=== PATIENT | male | born 2000 | race Two or more races ===

== ENCOUNTER 2024-02-15 18:10 | Emergency (ER) | payer MEDICAID, OTHER ==
[~2024-02-15] VITALS: Ht 177.8 cm; Wt 58.1 kg
[2024-02-15 18:22] VITALS: TEMP 98.6
[2024-02-15] MEDS ORDERED: diphenhydrAMINE HCL 50 MG/ML VIAL ONE (18:39)
[2024-02-15] MEDS ORDERED: FAMOTIDINE/PF INJ 20 MG/2 ML VIAL IV ONE (18:39)
[2024-02-15] MEDS ORDERED: methylPREDNISolone SOD SUCC 125 MG/2ML VIAL ONE (18:39)
[2024-02-15] MEDS: diphenhydrAMINE HCL 50 MG/ML VIAL IV ONE (18:50)
[2024-02-15] MEDS: FAMOTIDINE/PF INJ 40 MG in IV D5W 250 ML IV ONE (18:55)
[2024-02-15] MEDS: methylPREDNISolone SOD SUCC 125 MG/2ML VIAL IV ONE (19:00)
[2024-02-15] MEDS: IV NS 0.9% 1,000 ML BAG IV ONE (19:01)
[2024-02-15 19:04] VITALS: BP 132/74; O2SAT 99
== END 2024-02-15 20:51 | disposition home or self-care (01) ==
LOC: ER 18:19
DX: T78.40XA Allergy, unspecified, initial encounter (principal); R21 Rash and other nonspecific skin eruption; X58.XXXA Exposure to other specified factors, initial encounter
CPT/HCPCS: 99284; 96365; 96375; J1200; J3490; J2919; J7030